=== PATIENT | female | born 1960 | race Caucasian/White ===

== ENCOUNTER 2021-12-25 17:26 | Emergency (ER) | payer BC ==
[2021-12-25] MEDS ORDERED: Acetaminophen/HYDROcodone 325-5 MG Tab PO ONE ×2 (17:54→20:27)
[2021-12-25] MEDS ORDERED: cefTRIAXone 1 GM Vial IM ONE (19:56)
== END 2021-12-25 20:58 | disposition home or self-care (01) ==
LOC: MERGE 17:26 → MW.ED 17:26
DX: S89.92XA Unspecified injury of left lower leg, initial encounter (principal); N30.00 Acute cystitis without hematuria; I10 Essential (primary) hypertension; F41.9 Anxiety disorder, unspecified; F32.A Depression, unspecified; E66.9 Obesity, unspecified; Z68.41 Body mass index [BMI] 40.0-44.9, adult; Z79.899 Other long term (current) drug therapy; X58.XXXA Exposure to other specified factors, initial encounter
CPT/HCPCS: 73600; 73620; 81001; 87086; 96372; 99283; A9270; J0696; 87088; 87186

== ENCOUNTER 2022-08-14 03:26 | Emergency (ER) | payer BC, OTHER ==
[2022-08-14] MEDS ORDERED: Ketorolac 30 MG/ML SDV IM ONE (03:47)
[2022-08-14] MEDS ORDERED: Diazepam 5 MG Tab PO STA (04:10)
== END 2022-08-14 05:18 | disposition home or self-care (01) ==
LOC: MW.ED 03:26
DX: S20.212A Contusion of left front wall of thorax, initial encounter (principal); J98.11 Atelectasis; I10 Essential (primary) hypertension; E66.9 Obesity, unspecified; Z68.41 Body mass index [BMI] 40.0-44.9, adult; Z79.899 Other long term (current) drug therapy; Z90.49 Acquired absence of other specified parts of digestive tract; Z90.710 Acquired absence of both cervix and uterus; X50.9XXA Other and unspecified overexertion or strenuous movements or postures, initial encounter
CPT/HCPCS: 71101; 96372; 99283; A9270; J1885

== ENCOUNTER 2023-03-01 18:04 | Observation (INO) | payer OTHER ==
[2023-03-01] MEDS ORDERED: Sodium Chloride 0.9% 2.5 ML Syringe FLUSH PRN (18:07)
[2023-03-01] MEDS ORDERED: Sodium Chloride 0.9% 10 ML Syringe FLUSH PRN (18:07)
[2023-03-01 18:16] LABS: BASOPHILS PERCENT AUTO 0.1 % (0.0-1.5); HEMATOCRIT 37.6 % (36.0-46.0); HEMOGLOBIN 12.6 g/dL (12.0-16.0); LYMPHOCYTES ABSOLUTE AUTO 1.3 K/uL (0.6-2.4); LYMPHOCYTES PERCENT AUTO 9.3 % (16.0-40.0); MEAN CORPUSCULAR HEMOGLOBIN 29.5 pg (27.0-32.0); MEAN CORPUSCULAR HGB CONC 33.5 g/dL (31.0-37.0); MEAN CORPUSCULAR VOLUME 88.1 fL (80.0-98.0); MONOCYTES ABSOLUTE AUTO 0.8 K/uL (0.0-0.8); MONOCYTES PERCENT AUTO 5.8 % (0.0-15.0); NEUTROPHILS ABSOLUTE AUTO 11.4 K/uL (1.4-5.7); NEUTROPHILS PERCENT AUTO 84.8 % (48.0-80.0); NRBC ABSOLUTE 0 K/uL; PLATELET COUNT,PLT 383 K/uL (150-400); RED BLOOD CELL COUNT 4.27 M/uL (4.30-5.90); WHITE BLOOD CELL COUNT,WBC 13.48 K/uL (4.0-11.0)
[2023-03-01 18:42] LABS: ALBUMIN 3.9 g/dL (3.4-5.0); BILIRUBIN TOTAL 0.5 mg/dL (0.2-1.0); CALCIUM 10.6 mg/dL (8.5-10.1); CARBON DIOXIDE,CO2 25.3 mmol/L (21.0-32.0); CREATININE 1.3 mg/dL (0.6-1.0); EST CRCL DRUG DOSING (CG) 35.94 mL/min; POTASSIUM,K 3.6 mmol/L (3.5-5.1); PROTEIN TOTAL,TP 7.8 g/dL (6.4-8.2)
[2023-03-01] MEDS ORDERED: Sodium Chloride 0.9% 1,000 ML IV STA ×3 (18:45→21:28)
[2023-03-01] MEDS ORDERED: Ondansetron 4 MG/2 ML SDV IVPUSH STA (18:45)
[2023-03-01] MEDS ORDERED: Morphine 4 MG/ML Syringe IVPUSH STA ×2 (18:46→20:11)
[2023-03-01] MEDS ORDERED: Iopamidol 755 MG/ML 500 ML Multipack Bottle IVPUSH ONE (19:18)
[2023-03-01] MEDS ORDERED: HYDROmorphone 1 MG/ML Syringe IVPUSH STA (21:28)
[2023-03-01] MEDS ORDERED: Temazepam 15 MG Cap PO PRN (22:01)
[2023-03-01] MEDS ORDERED: Ondansetron 4 MG/2 ML SDV IVPUSH PRN (22:01)
[2023-03-01] MEDS ORDERED: Ondansetron 4 MG Tab.DIS PO PRN (22:01)
[2023-03-01] MEDS ORDERED: HYDROmorphone 2 MG/ML Syringe IVPUSH PRN (22:01)
[2023-03-01] MEDS ORDERED: Magnesium Hydroxide 400 MG/5 ML Susp 30 ML Cup PO PRN (22:01)
[2023-03-01] MEDS ORDERED: Acetaminophen 325 MG Tab PO PRN (22:01)
[2023-03-01] MEDS ORDERED: HYDROmorphone 1 MG/ML Syringe IVPUSH PRN (22:14)
[2023-03-01] MEDS: oxyCODONE 5 MG Tab PO PRN (22:54)
[2023-03-01] MEDS: Lactated Ringers 1,000 ML IV SCH (22:54)
[2023-03-01 23:12] LABS: APPEARANCE,URINE SLT CLOUDY; BILIRUBIN,URINE NEGATIVE (NEGATIVE); COLOR,URINE DARK YELLOW; GLUCOSE,URINE NEGATIVE (NEGATIVE); KETONES,URINE TRACE mg/dL (NEGATIVE); LEUKOCYTE ESTERASE,URINE NEGATIVE (NEGATIVE); NITRITE,URINE POSITIVE (NEGATIVE); OCCULT BLOOD,URINE NEGATIVE (NEGATIVE); PROTEIN,URINE 30 mg/dL (NEGATIVE); UROBILINOGEN,URINE 0.2 EU/dL (<2.0)
[2023-03-01 23:21] LABS: AMORPHOUS SEDIMENT,URINE MODERATE (NEGATIVE); BACTERIA,URINE 3+ (NEGATIVE); EPITHELIAL CELLS,URINE RARE (NONE-FEW); RBC,URINE 0-2 (0-2/HPF)
[2023-03-01 23:23] LABS: TRIPLE PHOSPHATE CRYSTALS,UR OCCASIONAL (NEGATIVE)
[2023-03-02] MEDS: oxyCODONE 5 MG Tab PO PRN (07:15)
[2023-03-02] MEDS: Lactated Ringers 1,000 ML IV SCH (07:15)
[2023-03-02 07:35] LABS: BASOPHILS PERCENT AUTO 0.1 % (0.0-1.5); EOSINOPHILS PERCENT AUTO 0.3 % (0.0-7.0); HEMATOCRIT 35.5 % (36.0-46.0); HEMOGLOBIN 11.6 g/dL (12.0-16.0); LYMPHOCYTES ABSOLUTE AUTO 1.8 K/uL (0.6-2.4); LYMPHOCYTES PERCENT AUTO 15.2 % (16.0-40.0); MEAN CORPUSCULAR HEMOGLOBIN 29.6 pg (27.0-32.0); MEAN CORPUSCULAR HGB CONC 32.7 g/dL (31.0-37.0); MEAN CORPUSCULAR VOLUME 90.6 fL (80.0-98.0); MONOCYTES ABSOLUTE AUTO 1.1 K/uL (0.0-0.8); NEUTROPHILS PERCENT AUTO 75.4 % (48.0-80.0); NRBC ABSOLUTE 0 K/uL; PLATELET COUNT,PLT 300 K/uL (150-400); RED BLOOD CELL COUNT 3.92 M/uL (4.30-5.90); WHITE BLOOD CELL COUNT,WBC 11.96 K/uL (4.0-11.0)
[2023-03-02 07:56] LABS: A/G RATIO 0.9 (0.9-1.6); ALBUMIN 2.9 g/dL (3.4-5.0); BILIRUBIN TOTAL 0.5 mg/dL (0.2-1.0); CALCIUM 8.6 mg/dL (8.5-10.1); CARBON DIOXIDE,CO2 27.3 mmol/L (21.0-32.0); CREATININE 0.9 mg/dL (0.6-1.0); EST CRCL DRUG DOSING (CG) 51.92 mL/min; MAGNESIUM 1.5 mg/dL (1.8-2.4); POTASSIUM,K 3.8 mmol/L (3.5-5.1); PROTEIN TOTAL,TP 6.3 g/dL (6.4-8.2)
[2023-03-02] MEDS ORDERED: Enoxaparin 40 MG/0.4 ML Syringe SUBCUT SCH (09:00)
[2023-03-02] MEDS ORDERED: Pantoprazole 40 MG in Sodium Chloride 0.9% 10 ML IVPUSH SCH (09:00)
[2023-03-02] MEDS ORDERED: LORazepam 0.5 MG Tab PO PRN (09:09)
[2023-03-02] MEDS ORDERED: Levothyroxine 88 MCG Tab PO SCH (09:30)
[2023-03-02] MEDS ORDERED: Pregabalin 75 MG Cap PO SCH ×2 (09:30→21:00)
[2023-03-02] MEDS: Sulfamethoxazole/Trimethoprim 800-160 MG Tab PO SCH ×2 (10:23→18:06)
[2023-03-02] MEDS ORDERED: Magnesium Sulfate/Water 4 GM in Premix Bag 1 BAG IV ONE (10:44)
[2023-03-03] MEDS ORDERED: Atenolol 50 MG Tab PO SCH (09:00)
[2023-03-03] MEDS ORDERED: DULoxetine 60 MG Cap PO SCH (09:00)
== END 2023-03-02 18:30 | disposition home or self-care (01) ==
LOC: MW.ED 18:04 → MW.MS 21:28
PROVIDERS: ADMIT Internal Medicine; ATTEND Internal Medicine
DX: K85.90 Acute pancreatitis without necrosis or infection, unspecified (principal); K21.9 Gastro-esophageal reflux disease without esophagitis; I10 Essential (primary) hypertension; M19.90 Unspecified osteoarthritis, unspecified site; G43.909 Migraine, unspecified, not intractable, without status migrainosus; E03.9 Hypothyroidism, unspecified; F41.8 Other specified anxiety disorders; E66.9 Obesity, unspecified; Z68.30 Body mass index [BMI] 30.0-30.9, adult; Z90.09 Acquired absence of other part of head and neck; Z90.49 Acquired absence of other specified parts of digestive tract; Z90.710 Acquired absence of both cervix and uterus; Z96.619 Presence of unspecified artificial shoulder joint; Z79.890 Hormone replacement therapy; Z79.899 Other long term (current) drug therapy
CPT/HCPCS: 36415; 71045; 74177; 80053; 81001; 83690; 83735; 84484; 85025; 87086; A9270; C9113; J1170; J1650; J2270; J2405; J3475; J3490; J7030; J7120; Q9967; 87088; 87186; 93005; 93010; 96361; 96365; 96366; 96372; 96374; 96375; 96376; 99222; 99239; 99285; 99285-25; G0378

== ENCOUNTER 2024-01-10 07:20 | Day surgery (SDC) | payer MEDICARE, OTHER ==
[2024-01-10] MEDS: Lactated Ringers 1,000 ML IV SCH (07:50)
[2024-01-10] MEDS ORDERED: dexmedeTOMIDine HCl 200 MCG/2 ML SDV ONE (08:41)
[2024-01-10] MEDS ORDERED: Water For Injection, Sterile 20 ML ONE (08:41)
[2024-01-10] MEDS ORDERED: propofoL 50 ML ONE (08:50)
[2024-01-10] MEDS ORDERED: Propofol 200 MG/20 ML SDV ONE (09:34)
[2024-01-10] MEDS ORDERED: Lactated Ringers 1,000 ML IV SCH (10:15)
[2024-01-10] MEDS ORDERED: Ketorolac 30 MG/ML SDV ONE (10:24)
[2024-01-10] MEDS ORDERED: fentaNYL 100 MCG/2 ML SDV ONE (10:24)
[2024-01-10] MEDS ORDERED: Ondansetron 4 MG/2 ML SDV ONE (10:24)
== END 2024-01-10 11:12 | disposition home or self-care (01) ==
LOC: MW.SDS 07:20
PROVIDERS: ATTEND Surgery
DX: Z12.11 Encounter for screening for malignant neoplasm of colon (principal); K21.9 Gastro-esophageal reflux disease without esophagitis; I10 Essential (primary) hypertension; E03.9 Hypothyroidism, unspecified; F41.8 Other specified anxiety disorders; Z98.84 Bariatric surgery status; Z79.890 Hormone replacement therapy; Z79.899 Other long term (current) drug therapy
CPT/HCPCS: 43239; 45378; 88305; J1885; J2405; J2704; J3010; J7120; 00813; J3490

== ENCOUNTER 2025-05-10 11:40 | Emergency (ER) | payer MEDICARE ==
[2025-05-10 13:02] LABS: APPEARANCE,URINE SLT CLOUDY; GLUCOSE,URINE NEGATIVE (NEGATIVE); OCCULT BLOOD,URINE MODERATE (NEGATIVE)
[2025-05-10 13:13] LABS: EPITHELIAL CELLS,URINE MODERATE (NONE-FEW)
[2025-05-10] MEDS: Lidocaine 1% PF 2 ML SDV INJECT ONE (14:11)
== END 2025-05-10 14:33 | disposition home or self-care (01) ==
LOC: MW.ED 11:40
DX: N39.0 Urinary tract infection, site not specified (principal); I10 Essential (primary) hypertension; K21.9 Gastro-esophageal reflux disease without esophagitis; E03.9 Hypothyroidism, unspecified; Z98.84 Bariatric surgery status; Z90.49 Acquired absence of other specified parts of digestive tract; Z90.710 Acquired absence of both cervix and uterus; Z79.890 Hormone replacement therapy; Z79.899 Other long term (current) drug therapy
CPT/HCPCS: 81001; 87086; 96372; 99283; J0696; J2003